=== PATIENT | female | born 1995 | race Two or more races ===

== ENCOUNTER → 2024-09-14 | Outpatient (CLI) | payer OTHER ==
[2024-09-15 07:07] LABS: Mumps IgG Antibody 34.5 AU/mL (Immune >10.9); Rubeola IgG Antibody 61.3 AU/mL (Immune >16.4); Varicella Zoster IgG Antibody Reactive (Non Reactive)
== END | disposition home or self-care (01) ==
LOC: LAB 12:40
PROVIDERS: ATTEND Anesthesiology
DX: Z01.84 Encounter for antibody response examination (principal)
CPT/HCPCS: 36415; 86706; 86735; 86762; 86765; 86787